=== PATIENT | female | born 1990 | race Caucasian/White ===

== ENCOUNTER 2018-11-11 12:03 | Inpatient (IN) | payer OTHER ==
[~2018-11-11] VITALS: Ht 160 cm; Wt 78.6 kg
[2018-11-11] MEDS ORDERED: PNV11TAB PO (12:17)
[2018-11-11 12:18] VITALS: BP 108/61; PULSE 80; RESP 19; Ht 160 cm; Wt 78.6 kg
--- NOTE | 2018-11-11 12:52 | PREOPHP ---
DATE OF ADMISSION: 11/11/2018 HISTORY OF PRESENT ILLNESS: Ms. Sadie Norris is a 28-year-old 2, para 1, EDC 01/21/2019, intrauterine at 29 weeks and 6 days gestational age, was seen in clinic yesterday complaining of uterine contractions; however, patient presented to the triage at [facility] today. She declines any contractions, vaginal bleeding, or discharge. She reports good movement. Her care took place at [facility]. PAST MEDICAL HISTORY: None. MEDICATIONS: vitamins. PAST SURGICAL HISTORY: Previous section x1. OBSTETRIC HISTORY: Previous section x1. GYNECOLOGIC HISTORY: Twelve, regular 3 to 4 days. Denies any sexually transmitted infections. Sexually active with 1 partner. SOCIAL HISTORY: Denies any smoking, drugs or alcohol. FAMILY HISTORY: None. REVIEW OF SYSTEMS: All within normal except history of present illness. PHYSICAL EXAMINATION: HEENT: Within normal. LUNGS: CTA bilateral. CARDIOVASCULAR: S1, S2. Regular rhythm. ABDOMEN: Gravid, nontender. Negative CVA bilateral. EXTREMITIES: No calf tenderness. PELVIC: Vaginal exam, no active bleeding. heart tracing category 1. Tocometer no contractions. IMPRESSION: Intrauterine at 29 weeks and 6 days gestational age, currently with no contractions/resolved. PLAN: A biophysical profile, cervical length, consider discharge home if everything is within normal. Dictated By: ROCÍO HERNANDEZ/SAMANTHA Conf#: [id number] DID#: [id number] addendum: as patient was about to be discharged home, patient was observed to have regular ctx and was admitted ordered tocolysis with steroid treatment. MTDD
[2018-11-11] MEDS ORDERED: TERBUTALINE 1 ML ONE (13:24)
[2018-11-11] MEDS ORDERED: TERBUTALINE 1 MG/ML INJ SC ONE (13:30)
[2018-11-11] MEDS ORDERED: LACTATED RINGER'S 1,000 ML IV ONE (15:00)
[2018-11-11] MEDS: LACTATED RINGER'S 1,000 ML IV SCH ×2 (16:18→23:00)
--- NOTE | 2018-11-11 16:50 | TRIAGE ---
OB Triage Datetime Report Generated by CPN: 11/11/2018 16:50 Datetime: 11/11/2018 16:39 Vaginal Exam Dilatation (cms): 0.0 Exam By: khemani Datetime: 11/11/2018 16:00 Labor Evaluation Frequency: 2-3 Monitor Mode: External Duration (sec)2399: 50-70 Quality: Mild Pattern: Normal: <= 5 Contractions in 10 Minutes Resting Tone [place]: Relaxed Heart Rate FHR Baseline Rate: 140 Monitor Mode: External US Variability: Moderate 6-25 bpm Accelerations: 15X15 Decelerations: None Category: Category I Datetime: 11/11/2018 12:32 Assessment Type: Triage Maternal Assessment Level of Consciousness: Fully Conscious DTR's/Clonus: DTRs 2+; No Clonus Headache: Denies Blurred Vision: No Respiratory Effort: Unlabored; Regular Rhythm; Equal Expansion Breath Sounds, Left: Clear and Equal Breath Sounds, Right: Clear and Equal Nausea/Vomiting: Denies RUQ Epigastric Pain: Denies Lower Extremities Edema: None Degree: None Upper Extremities Edema: None Degree: None Facial Edema: None Fall Risk Assessment History of Falling: (0) No Secondary Diagnosis: (0) No Ambulatory Aid: (0) Bedrest/Nurse Assist IV Therapy: (0) No Gait: (0) Normal/Bedrest/Immobile Mental Status: (0) Oriented to Own Ability Fall Score: 0 Fall Risk Score Definition: No Risk: No action required Datetime: 11/11/2018 12:31 Labor Evaluation Frequency: 0 Monitor Mode: External Pattern: Normal: <= 5 Contractions in 10 Minutes Resting Tone [place]: Relaxed Heart Rate FHR Baseline Rate: 145 Monitor Mode: External US Variability: Moderate 6-25 bpm Accelerations: 15X15 Decelerations: None Category: Category I Datetime: 11/11/2018 12:30 Time of Arrival: 11/11/2018 11:50 EGA: 29.6 Arrived By: Ambulatory Arrived From: Office Chief Complaint: PTL Movement: Present Contractions: Denies/Absent Rupture of Membranes: Denies Vaginal Bleeding: None Vaginal Discharge: Denies Recent Sexual Intercouse: Denies Abdominal Trauma: Not Applicable Patient Complaints: Other Time Provider Notified: 11/11/2018 12:25 Provider Notified: DR BILLINGS Initial Plan: NST BPP CERVICAL LENGHT AND UA
[2018-11-11] MEDS ORDERED: MAGNESIUM SULFATE 4 GM/100 ML 100 ML IV ONE (17:30)
[2018-11-11] MEDS: MAGNESIUM SULFATE 20 GM/500 ML 500 ML IV SCH (18:44)
[2018-11-11] MEDS: BETAMET NA PHOS/AC(6 MG/ML) 2 ML INJ SYG IM SCH (19:04)
[2018-11-12] MEDS ORDERED: CA GLUCONATE (GM) 10% 10ML INJ IV PRN
[2018-11-12] MEDS: MAGNESIUM SULFATE 20 GM/500 ML 500 ML IV SCH (04:13)
[2018-11-12] MEDS: LACTATED RINGER'S 1,000 ML IV SCH ×2 (05:30→19:01)
[2018-11-12] MEDS ORDERED: PRENATAL VITAMIN PO SCH (09:00)
[2018-11-12] MEDS ORDERED: SPECIAL NON-STANDARD MEDICATION PO SCH (09:00)
[2018-11-12] MEDS: FERROUS SULFATE (EC) 325 MG TAB PO SCH (09:05)
[2018-11-12] MEDS ORDERED: ACETAMINOPHEN 325 MG TAB PO PRN (13:00)
[2018-11-12] MEDS ORDERED: AL HYDROX/MG HYDROX/SIMETH 30 ML CUP PO PRN (13:00)
[2018-11-12] MEDS: SPECIAL NON-STANDARD MEDICATION PO SCH (14:13)
[2018-11-12] MEDS: NIFEdipine 10 MG CAP PO SCH (15:46)
[2018-11-12] MEDS: BETAMET NA PHOS/AC(6 MG/ML) 2 ML INJ SYG IM SCH (19:02)
[2018-11-12] MEDS ORDERED: NIFEdipine (XL) 30 MG TAB PO SCH (21:00)
--- NOTE | 2018-11-12 22:35 | QN ---
Documentation Comment patient seen and evaluated no complaints vs stable afebrile fhr cat 1 toco occasional ctx a/ iup at 30 wks ga, ctx resolved. patient recieved mg and steriod tx already currently on Procardia p/ continue to monitor patient closely. consider to discharge home tomorrow if stable ROCÍO BILLINGS MD November 12, 2018 22:34
[2018-11-13] MEDS: LACTATED RINGER'S 1,000 ML IV SCH ×3 (03:16→23:00)
[2018-11-13] MEDS ORDERED: NIFEdipine (XL) 30 MG TAB PO SCH (06:00)
[2018-11-13] MEDS ORDERED: SPECIAL NON-STANDARD MEDICATION PO SCH (09:00)
[2018-11-13] MEDS: FERROUS SULFATE (EC) 325 MG TAB PO SCH (09:53)
--- NOTE | 2018-11-13 18:40 | PD.PPDC ---
TOY STUFFER Discharge Instruction Condition Blicd7Cp Patient Condition: Mhmoh6o Good Diet Jpzyr6Xy Diet: Usqko0i Resume Regular Diet Activity/Restrictions Fzstz4Kn Activity: Tiilu3f Normal Activity May Shower Fhjiy5Xg Restrictions: Wfdwv2k No Exercising No Lifting No Driving No Sexual Activity Nothing in the Vagina No [place] No Tampons, douche Follow-up Follow-up with Physician: 1, Week/Weeks Return to clinic for Pdvsi8Tm PIPE THREADER Instructions: Zsxnq4y Fever greater than 101 Chills Worsening abdominal pain Excessive Vaginal Bleeding More than 2 pads per hour Unable to tolerate diet Qirbq9Dk OB Instructions: Nfdro4w Breast Tenderness Depression Blurried Vision Headache ROCÍO BILLINGS MD November 13, 2018 18:40
--- NOTE | 2018-11-13 20:52 | DS ---
DATE OF ADMISSION: 11/11/2018 DATE OF DISCHARGE: 11/13/2018 PRIMARY DIAGNOSES: 1. Intrauterine at 30 weeks and 1 day gestational age. 2. contraction. 3. Undelivered. PROCEDURE: None. CONDITION ON DISCHARGE: Stable. ACTIVITY: None per vagina, no heavy lifting. DIET: Regular. MEDICATIONS ON DISCHARGE: Continue vitamins. DISCHARGE SUMMARY: Ms. Sadie Norris is a 28-year-old 2, para 1, intrauterine a t 30 weeks and 1 day gestational age, presented to triage on 11/11/2018 observed to have regular cont ractions. She was given terbutaline; however, she continued to have contractions. She was admitted and started on magnesium sulfate and given steroid treatment for lung maturity followed by Robert rene. The patient has a history of not being able to tolerate pills. She will be discharged home t mann with strict labor precautions. She is currently not roger. heart tracing c ategory 1. She will follow up in the clinic in 1 week for her followup care visit. Again, strict labor and kick counts were discussed with the patient and recommend nonstress te st and biophysical profile twice weekly. Dictated By: ROCÍO BILLINGS MD ME/SAMANTHA Conf#: [id number] DID#: [id number] CC: ERICA ECHAVARRIA MD;*EndCC*
[2018-11-14] MEDS: LACTATED RINGER'S 1,000 ML IV SCH (06:24)
[2018-11-14] MEDS: FERROUS SULFATE (EC) 325 MG TAB PO SCH (08:49)
[2018-11-14] MEDS: SPECIAL NON-STANDARD MEDICATION PO SCH (08:49)
--- NOTE | 2018-11-15 13:24 | DS ---
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 CLINICAL INDICATION: Size and dates , labor TECHNIQUE: Multiple sonographic images of the pelvis and gravid uterus were obtained. The images were reviewed on a PACS workstation. Transvaginal images of the cervix were also obtained. COMPARISON: US PELVIS 11/13/2018 FINDINGS: Cervix: Length: 3.1 cm. Closed and competent. Gestation: Single live intrauterine gestation. Cardiac activity: 161 beats per minute. Presentation: Vertex. Placenta: Location: Posterior Appearance: No previa or abruption. Amniotic Fluid: ZAHIDA = 19.7 cm Measurements: BPD = 7.9 cm, 31 weeks and 6 days HC = 28.9 cm, 31 weeks and 6 days AC = 26.3 cm, 30 weeks and 3 days FL = 5.8 cm, 30 weeks and 2 days Gestational Age: AUA estimated gestational age: 31 weeks 1 day LMP estimated gestational age: 30 weeks 2 days AUA estimated date of delivery: 01/15/19 The EFW = 1613 g, 50%ile based on LMP age. RPTAT: AA IMPRESSION: Single live intrauterine gestation of approximately 31 weeks and 1 day based on ultrasound measurements. ZAHIDA measures 19.7 cm. .Celestino Ybarra MD, Date Time Electronically viewed and signed by .Celestino Ybarra MD, on 11/14/2018 07:19 .S/ CC: BILL KING MD [phone] Complications Tocolytics: Magnesium Sulfate Condition on Discharge Physical Assessment Voiding: Yes Bowel Movement: Yes Breast: Soft, non-tender Fundus: Other (Gravid) Calf Tenderness: No Patient Condition: Good Copies To: CC: ROCÍO BILLINGS MD ; MIAN CHESTER MD November 15, 2018 13:24
== END 2018-11-14 15:39 | disposition home or self-care (01) | DRG 833 ==
LOC: L-D 12:03 → OBT 12:03 → PP1 16:40 → OBT 16:40
PROVIDERS: ADMIT Obstetrics & Gynecology; ATTEND Obstetrics & Gynecology
DX: O60.03 Preterm labor without delivery, third trimester (principal)
CPT/HCPCS: 36415; 76815; 76817; 76818; 81001; 82731; 83735; 87086; 96360; 96361; G0463; J0702; J3105; J3475; J7120